=== PATIENT | female | born 1995 | race Caucasian/White ===

== ENCOUNTER 2018-04-25 14:30 | Inpatient (IN) | payer OTHER ==
[~2018-04-25] VITALS: Ht 162.6 cm; Wt 63.0 kg
[2018-05-12] MEDS ORDERED: PRENATAL TABLE1 EAC2 PO (11:15)
[2018-05-14] MEDS ORDERED: CODE1TAB37 PO (09:17)
== END 2018-05-14 12:49 | disposition home or self-care (01) | DRG 775 ==
LOC: EDBD 05-12 06:05 → OB/GYN 05-12 06:05 → LDR 05-12 06:05 → OB/GYN 05-12 18:19
PROC: 0KQM0ZZ Repair Perineum Muscle, Open Approach (ICD-10-PCS; principal; 2018-05-12)
PROC: 10E0XZZ Delivery of Products of Conception, External Approach (ICD-10-PCS; 2018-05-12)
PROC: 4A1HXCZ Monitoring of Products of Conception, Cardiac Rate, External Approach (ICD-10-PCS; 2018-05-12)
PROC: 3E033VJ Introduction of Other Hormone into Peripheral Vein, Percutaneous Approach (ICD-10-PCS; 2018-05-12)
PROC: 4A033R1 Measurement of Arterial Saturation, Peripheral, Percutaneous Approach (ICD-10-PCS; 2018-05-12)
DX: O70.1 Second degree perineal laceration during delivery (principal); Z37.0 Single live birth; O41.03X0 Oligohydramnios, third trimester, not applicable or unspecified; Z3A.37 37 weeks gestation of pregnancy; Z22.330 Carrier of Group B streptococcus